=== PATIENT | male | born 1960 | race Caucasian/White ===

== ENCOUNTER 2017-08-24 10:49 | Inpatient (IN) | payer OTHER, SELFPAY ==
[2017-08-24 11:24] LABS: Band 8 % (5-11); Eosinophils 1 % (0-10); Hemoglobin 12.8 g/dL (14.0-18.0); Lymphocytes 28 % (21-51); MDiff Complete? YES; Mean Corpuscular HGB CONC 35.1 g/dL (32.0-36.0); Mean Corpuscular Hemoglobin 33.1 pg (27.0-31.0); Mean Corpuscular Volume 94.3 fl (80.0-94.0); Mean Platelet Volume 9.8 fL (7.4-10.4); Monocytes 9 % (0-10); Neutrophil 54 % (42-75); PLT Morphology Comment Appears Adequate; Platelet Count 144 thou/uL (130-400); RBC Distribution Width 12.6 % (11.5-14.5); Red Blood Cell (RBC) Count 3.87 mill/uL (4.70-6.10); White Blood Cell (WBC) Count 8.9 thou/uL (4.8-10.8)
[2017-08-24 11:30] LABS: CKMB 2.1 ng/mL (0-6.6); Troponin I Less than 0.010 ng/mL (< 0.028)
[2017-08-24 12:22] LABS: INR-International Normal Ratio 1.1; Prothrombin Time 14.3 SEC (12.0-14.7)
[2017-08-24 12:34] LABS: ALT (SGPT) 17 U/L (8-55); AST (SGOT) 17 U/L (5-34); Albumin 4.1 g/dL (3.5-5.0); Alkaline Phosphatase 57 U/L (40-150); Anion Gap 15 mmol/L (10-20); BUN (Urea Nitrogen) 23 mg/dL (8.4-25.7); Bilirubin, Total 0.3 mg/dL (0.2-1.2); Calc. Creatinine Clearance 0 mL/min (70-130); Carbon Dioxide 19 mmol/L (22-29); Chloride 105 mmol/L (98-107); Estimated GFR-MDRD 62; Globulin 2.9 g/dL (2.4-3.5); Glucose 272 mg/dL (70-105); Magnesium 1.6 mg/dL (1.6-2.6); Potassium 4.6 mmol/L (3.5-5.1); Sodium 134 mmol/L (136-145)
[2017-08-24] MEDS ORDERED: Ondansetron ODT 4 MG TAB SL PRN (13:55)
[2017-08-24] MEDS ORDERED: Acetaminophen 325 MG TAB PO PRN (13:55)
[2017-08-24] MEDS ORDERED: ISOVUE-370 76%-LOCM 1 ML ONE (13:57)
--- NOTE | 2017-08-24 13:58 | CT ---
BRAIN CT WITHOUT IV COTNRAST: HISTORY: A 56-year-old male with a history of left-sided weakness. FINDINGS: There is no focal mass or midline shift. No intra- or extraaxial hemorrhage. There is some minimal right maxillary sinus mucosal disease. The mastoids are clear. IMPRESSION: No acute intracranial process. No mass or bleed. Minimal right maxillary sinus mucosal disease. Findings were discussed with Dr. Grey at 11:02 a.m. CODE CR POS: [facility]
[2017-08-24 14:03] VITALS: BMI 34.1
[2017-08-24] MEDS: Ondansetron HCl/PF 4 MG/2 ML Vial IVP PRN ×2 (14:04→19:49)
--- NOTE | 2017-08-24 14:06 | PDOC.FPRHP ---
- History of Present Illness Chief Complaint: Left sided numbness and weakness History of Present Illness: This is a 56 yo male w/ pmh of tobacco abuse, recent CVA, HLD, HTN, DMII came in reporting have left side weakness, slurred speech, facial droop. Pt reports @ 930 this morning he says his left side went haywire and gave out on him. Says he couldn't use his left arm or leg. Said they went weak and had numbness. Also reported having slurred speech and left sided facial droop. Denies any SOB, chest pain. Denies any fever chills or recent illness. Pt reports vomiting 4x since getting to ER. Denies any diarrhea, constipation. Denies any dizziness, lightheadnes. Denies headaches. Denies any imbalance. . Pt denies any tingling. Denies any changes in vision or hearing. Pt sx's improving from what they were on initial presentation. Family present in room and reports speech still slurred but much btter from before Pt reports being [facility] from [facility] ago in which there he also was told he had a stroke. He said he had facial droop and speech then. He said he went and saw his senior quality manager in between that admission and this one and there they did us dopplers of his carotid which were negative. - Allergies/Adverse Reactions Allergies Allergy/AdvReac Type Severity Reaction Status Date / Time No Known Allergies Allergy Verified 08/24/17 14:05 - Home Medications Medication Instructions Recorded Confirmed Type Aspirin [Aspirin Chewable Tablet] 1 tab PO DAILY 08/24/17 08/24/17 History Atenolol [Tenormin] 1 tab PO BID 08/24/17 08/24/17 History Cholecalciferol (Vitamin D3) 1 tab PO DAILY 08/24/17 08/24/17 History [Vitamin D3] Clopidogrel Bisulfate [Clopidogrel] 1 tab PO DAILY 08/24/17 08/24/17 History Gemfibrozil [Lopid] 1 tab PO BID 08/24/17 08/24/17 History Lisinopril [Zestril] 1 tab PO DAILY 08/24/17 08/24/17 History Omeprazole [Omeprazole] 1 tab PO DAILY 08/24/17 08/24/17 History Pioglitazone HCl [Actos] 2 tab PO DAILY 08/24/17 08/24/17 History Simvastatin [Zocor] 1 tab PO DAILY 08/24/17 08/24/17 History Spironolact/Hydrochlorothiazid 0.5 tab PO DAILY 08/24/17 08/24/17 History [Aldactazide] glipiZIDE [Glucotrol XL] 2 tab PO BID 08/24/17 08/24/17 History metFORMIN HCl [Metformin HCl] 2 tab PO BID 08/24/17 08/24/17 History - History PMHx: HTN, DMII, HLD, Heart Stent placed in 2010 PSHx: R knee replacement. L wrist repair FHx:Dad- Diabetes, Mom- heart issues Social:1ppd smoker, Denies alcohol, Denies illicit drugs - Review of Systems General: denies: fever/chills, weight/appetite/sleep changes, night sweats, fatigue, other Eyes: denies: eye pain, vision changes, other ENT: denies: nasal congestion, rhinorrhea, other Respiratory: denies: cough, congestion, shortness of breath, exercise intolerance, other Cardiovascular: denies: chest pain, palpitation, edema, paroxysmal nocturnal dyspnea, orthopnea, other Gastrointestinal: reports: vomiting. denies: nausea, diarrhea, constipation, abdominal pain, GI bleeding, other Genitourinary: denies: incontinence, dysuria, polyuria, discharge, other Skin: denies: rashes, lesions, jaundice, itching, other Musculoskeletal: denies: pain, tenderness, stiffness, swelling, other Neurological: reports: numbness, weakness. denies: syncope, seizure, other Psychological: denies: anxiety, depression, other - Vital signs BP: [] HR: [] RR: [] Tmax: [] Pox: []% on [] Wt: [] - Physical Exam Constitutional: NAD, awake, alert and oriented, well developed HEENT: normocephalic and atraumatic, PERRLA, conjunctiva clear, no scleral icterus, grossly normal vision, grossly normal hearing Neck: supple, trachea midline, no JVD, no thyromegaly, no bruits Chest: no-tender to palpation, no lesions Heart: RRR, normal S1/S2, no murmurs/rubs/gallops, pulses present, no edema Lungs: CTAB, no respiratory distress, good air movement, no rales/rhonchi, no wheezing Abdomen: soft, non-tender, bowel sounds present, no masses/distention, no hernias Musculoskeletal: normal structure, normal tone -Musculoskeletal: Strenght 5/5 bilaterally in LE and UE -Neurological: Pt reports that maybe some numbness in the face after touching. Second time he said they felt about the same. Some nystagmus noted in his left eye during H test. Facial droop noted on L. side. Pt family reports speech still slurred but much improved from initial sx's Skin: no rash/lesions, good turgor, capillary refill <2 seconds, no jaundice Heme/Lymphatic: no unusual bruising or bleeding, no purpura Psychiatric: normal mood and affect, good judgment and insight, intact recent and remote memory FMR H&P: Results - Labs Result Diagrams: 08/24/17 11:00 08/24/17 12:06 Lab results: WBC 8.9 thou/uL (4.8-10.8) 08/24/17 11:00 Hgb 12.8 g/dL (14.0-18.0) L 08/24/17 11:00 Hct 36.5 % (42.0-52.0) L 08/24/17 11:00 MCV 94.3 fl (80.0-94.0) H 08/24/17 11:00 Plt Count 144 thou/uL (130-400) 08/24/17 11:00 Band Neuts % (Manual) 8 % (5-11) 08/24/17 11:00 Sodium 134 mmol/L (136-145) L 08/24/17 12:06 Potassium 4.6 mmol/L (3.5-5.1) 08/24/17 12:06 Chloride 105 mmol/L (98-107) 08/24/17 12:06 Carbon Dioxide 19 mmol/L (22-29) L 08/24/17 12:06 BUN 23 mg/dL (8.4-25.7) 08/24/17 12:06 Creatinine 1.21 mg/dL (0.6-1.3) 08/24/17 12:06 Glucose 272 mg/dL (70-105) H 08/24/17 12:06 Calcium 9.0 mg/dL (7.8-10.44) 08/24/17 12:06 Total Bilirubin 0.3 mg/dL (0.2-1.2) 08/24/17 12:06 AST 17 U/L (5-34) 08/24/17 12:06 ALT 17 U/L (8-55) 08/24/17 12:06 Alkaline Phosphatase 57 U/L (40-150) 08/24/17 12:06 CK-MB (CK-2) 2.1 ng/mL (0-6.6) 08/24/17 11:00 Serum Total Protein 7.0 g/dL (6.0-8.3) 08/24/17 12:06 Albumin 4.1 g/dL (3.5-5.0) 08/24/17 12:06 - Radiology Interpretation CT scan - head Status: image reviewed by me, report reviewed by me (NO acute pathology) Additional comment: CT Angio Head w/ neck perfusion: area of L. cerebellar perfusion abnormalities compatible w/ an area of L. cerebellar penumbra. Neck clear. Chest x-ray Status: image reviewed by me, report reviewed by me (negative) FMR H&P: A/P - Problem List (1) Cerebrovascular accident (CVA) Current Visit: Yes Status: Acute Code(s): I63.9 - CEREBRAL INFARCTION, UNSPECIFIED (2) HTN (hypertension) Current Visit: Yes Status: Acute Code(s): I10 - ESSENTIAL (PRIMARY) HYPERTENSION (3) HLD (hyperlipidemia) Current Visit: Yes Status: Acute Code(s): E78.5 - HYPERLIPIDEMIA, UNSPECIFIED (4) Diabetes mellitus Current Visit: Yes Status: Acute Code(s): E11.9 - TYPE 2 DIABETES MELLITUS WITHOUT COMPLICATIONS - Plan CVA of L. cerebellar region w/ L. sided defecits -Asa, plavix and switched to high dose statin from home statin. -Allow permissive HTN. -Neurology consulted- will follow recs -FLP am. Will check TSH -Will get ECHO. Will get MRI -Stroke team consulted. Q4hr neuro checks. -Bedside swallow study. -Speech, PT, OT consulted. Will await assessment. Speech due to dysarthria. -Will get [facility] from the [facility] to see about recent CVA and see what was done. DMII -Blood glucose elevated. Started home meds. Mild SSI. Accuchecks Achs. HTN -allow permissive HTN for next 24 hours, then restart home meds HLD -switched to high dose statin. Continue other home meds Tobacco abuse -counseled on cessation DVT Ppx -lovenos FMR H&P: Upper Level - Pertinent history 56yo CM with pmhx significant for HTN, HLD, DM2, tobacco abuse, and recent CVA 3 wks [employer] who presents with acute onset of left sided weakness, left facial sensory changes, and headache. Symptoms began approximately 1hr [employer] and have improved since they began. Took am meds (including asa & plavix). Pt stated he was treated 3 wks prior at [facility] after a CVA- unsure where in brain and unsure of any deficits. Upon arrival to ED, CT head was performed and found to be negative, therefore CTAngio was done showing a left cerebellar penumbra. ED physician called interventional neurosurgeon, Dr. Luke Flood, who recommended medical therapy as symptoms were resolving. - Pertinent findings CT Angio- left cerebellar penumbra Physical exam shows intact strength in b/l UE & LE. sensation mildly impaired left face with mild leftward gaze nystagmus. mildly dysarthric upon exam, but otherwise CN intact. Lab values generally wnl aside from glu 272. - Plan Date/Time: 08/24/17 1406 56yo CM with pmhx sig for prior CVA, HTN, HLD, DM2 & tobacco abuse who p/w-- 1) Acute left cerebellar ischemic CVA- penumbra noted on CT Angio, order MRI for tomorrow. no hemodynamically significant stenosis on carotid exam by CTA. order echocardiogram. EKG shows NSR. monitor on telemetry. request records from recent CVA at [facility]. consult neurology, PT/OT/ST and stroke team. allow for permissive HTN, holding home BP meds. bedside dysphagia screening- NPO with speech consult if fails; otherwise, HH & CC diet. cont ASA, plavix, high- intensity statin. 2) HTN- allow permissive HTN due to acute ischemic CVA, protect penumbra. labetolol/hydralazine prn SBP>220 or DBP > 110. 3) HLD- switch from moderate-intensity to high-intensity statin for improved plaque stabilization acutely. 4) DM2- cont home metformin & glipizide. add SSI and accuchecks ACHS. DM diet & education. d/c glipizide if develops hypoglycemia inpt. 5) Tobacco abuse- current 1ppd smoker. counseled on cessation. avoid nicotine TD in acute CVA period. I, [Olivia Dailey, ], have evaluated this patient and agree with findings/plan as outlined by event planning intern resident. Pertinent changes/additions are listed here. Attending Addendum - Attending Addendum Date/Time: 08/24/171931 I personally evaluated the patient and discussed the management with Dr. Garza I agree with the History, Examination, Assessment and Plan documented above with any addition or exceptions noted below. 56 yo male with HX CAD, AODM, HTN , and active smoker with recent w/u CVA at outside facility and dismissed on Clopidogrel 75 mg. Patient with left sided symptoms today slurred speech and weakness LUE and LLE at time of exam no deficits other than reported left facial parasthesia. Consider further evaluation may benefit from repeat MRI, APOLINAR as reported transthoracic echocardiogram and vascular studies previously completed
[2017-08-24] MEDS ORDERED: hydrALAZINE 20 MG/ML VIAL SLOW IVP PRN (14:20)
[2017-08-24] MEDS ORDERED: Labetalol HCl 100 MG/20 ML VIAL SLOW IVP PRN (14:20)
[2017-08-24] MEDS ORDERED: Dextrose 5% in Water 1,000 ML IV PRN (14:22)
[2017-08-24] MEDS ORDERED: Dextrose 50% Abboject 50 ML SYRINGE SLOW IVP PRN (14:22)
[2017-08-24 14:26] LABS: Troponin I Less than 0.010 ng/mL (< 0.028)
[2017-08-24] MEDS ORDERED: Enoxaparin Sodium 40 MG/0.4 ML SYRINGE SC SCH (14:30)
--- NOTE | 2017-08-24 14:30 | RAD ---
AP VIEW CHEST: HISTORY: Stroke, weakness. FINDINGS: AP view chest is obtained. There is mild cardiomegaly seen. No evidence of effusions, pneumonia, or pneumothorax seen. IMPRESSION: Unremarkable AP view chest. POS: [facility]
--- NOTE | 2017-08-24 14:30 | CT ---
CTA CAROTID WELL INTRACRANIAL CTA AND BRAIN PERFUSION SCAN: Images demonstrate the aortic arch to be unremarkable. The right brachiocephalic artery as well as t he right and left common carotid arteries are patent. The left vertebral artery appears to be occlud ed or significantly stenotic at its origin. The patient has a more normal-size right vertebral arter y. The JENNY, MCA, and C[employer]IED [employer] vessels are patent. Brain perfusion evaluation demonstrates increased mean transit time in the left cerebellar hemisphere . There is associated decreased left cerebellar blood flow as well as increased blood volume. This with the increased mean transit time, is compatible with an area of penumbra involving the left cere bellum. IMPRESSION: Area of left cerebellar perfusion abnormalities compatible with an area of left cerebellar penumbra. Findings discussed with Dr. Grey at 11:42 a.m. on 08/24/17. CODE CR POS: [facility]
[2017-08-24 14:51] LABS: INR-International Normal Ratio 1.2; PTT 29.2 SEC (22.9-36.1); Prothrombin Time 14.9 SEC (12.0-14.7)
[2017-08-24] MEDS: Gemfibrozil 600 MG TAB PO SCH (15:15)
[2017-08-24] MEDS: HumaLOG 300 UNITS/3 ML VIAL SC PRN ×3 (15:16→21:23)
[2017-08-24] MEDS ORDERED: FLU VACC QS2017-18 36 mo. & older 0.5 ML SYRINGE IM ONE (17:00)
--- NOTE | 2017-08-24 19:21 | CON ---
DATE OF CONSULTATION: 08/24/2017 CHIEF COMPLAINT: Weakness and incoordination. HISTORY OF PRESENT ILLNESS: The patient is a 56-year-old man who reports he had a stroke about 2 wee ks ago and patient has had incoordination from the prior stroke, which affected mostly his left side and this morning, he developed sudden onset of lack of coordination, and difficulty with walking and he had to come back to the hospital with possible stroke and at this time, he tried to walk, but he s aid he cannot walk well and he feels his left side is not coordinating well. PAST MEDICAL HISTORY: The patient reports he has had sleep apnea and poorly controlled diabetes. He has hypertension. He also has a physician who is looking at his carotid arteries. He also has high cholesterol. PAST SURGICAL HISTORY: He has had right knee surgery in the past and also left wrist surgery in 2013 and he reports he takes aspirin on a regular basis. CURRENT MEDICATIONS: As reviewed, he is on Tylenol, aspirin 325 mg, Lipitor 80 mg, cholecalciferol 5 000 units per day, Plavix 75 mg per day and he is on Lopid, glipizide, glucagon, hydralazine, insulin on a sliding scale, Normodyne, meclizine, metformin and Zofran p.r.n. SOCIAL HISTORY: He lives with his family. He is under a great deal of stress. He had to move his p arents locally closer to him and it has been a great stress. FAMILY HISTORY: Positive for mostly heart problems. No stroke in the family. LABORATORY DATA: White count 8.9, hemoglobin 12.8, hematocrit 36.5 and platelets 144. Chemistry: S odium 134, potassium 4.6, chloride 105, bicarbonate 19, BUN 23, creatinine 1.21 and glucose 272. The patient reports home glucose testing recently has been in the 400s and his PT 14.9, INR 1.2 and PTT 29.2. IMAGING DATA: CT angiogram shows area of left cerebellar perfusion abnormalities compatible with the area of left cerebellar penumbra, likely left cerebellar stroke; however, the patient reported he ju st had a stroke in the left cerebellum about [address] scan shows no acute intracranial process. PHYSICAL EXAMINATION: GENERAL APPEARANCE: A well-built, slightly overweight gentleman, appears comfortable in bed. VITAL SIGNS: Blood pressure 138/86, temperature 98.3, pulse 63 and respiratory rate 18. CHEST: Clear vesicular breathing. CARDIOVASCULAR: S1 and S2 heard. No murmurs. Carotids are clear. ABDOMEN: Soft and nontender. No organomegaly noted. MOTOR: Bulk normal. Tone normal. Strength 5/5 in upper and lower extremities bilaterally. SENSORY: Normal to touch, pinprick, proprioception, vibration, and temperature bilaterally and his g ait not testable. CEREBELLAR: He had very mild incoordination in the left upper extremity. IMPRESSION: The patient is a 56-year-old man with vascular risk factors, primarily unstable diabetes and recent history of stroke about 2 weeks ago on the left side and he recovered fully and went home , has been on aspirin. At this time, he reports he was unable to walk and he fell and got himself ba ck in the chair this morning and he still feels unstable and unsteady when walking. Clinical diagnos is is most consistent with possible exacerbation of his acute stroke of his prior stroke and CT angio gram shows occlusion of the left vertebral artery, normal right vertebral artery and normal patency o f JENNY, MCA and JENNY and area of left cerebellar perfusion abnormality. Clinical diagnosis is most con sistent with the stroke. RECOMMENDATIONS: 1. I would like to see an MRI to make sure that there is an acute ischemic event at this time. 2. His diabetes is rather unstable and we need to work on risk factor modification. I also think re peat echocardiogram will be helpful. I will request Dr. Paul to review this case tomorrow. Thank you for the consultation request.
[2017-08-24] MEDS ORDERED: Simvastatin 40 MG TAB PO SCH (21:00)
[2017-08-24] MEDS: Atorvastatin Calcium 40 MG TAB PO SCH (21:22)
[2017-08-24] MEDS: metFORMIN 500 MG TAB PO SCH (21:23)
[2017-08-24] MEDS: Meclizine HCl 25 MG TAB PO SCH (21:23)
[2017-08-25 05:47] LABS: #Eosinphils 0.1 thou/uL (0.0-0.7); #Lymphocytes 1.9 thou/uL (1.20-3.40); #Monocytes 0.7 thou/uL (0.11-0.59); #Neutrophils 5.1 thou/uL (1.40-6.50); %Basophils 0.5 % (0.0-1.0); %Eosinophils 1.2 % (0.0-10.0); %Lymphocytes 24.5 % (21.0-51.0); %Monocytes 8.3 % (0.0-10.0); %Neutrophils 65.5 % (42.0-75.0); Hemoglobin 12.6 g/dL (14.0-18.0); Mean Corpuscular Volume 97.2 fl (80.0-94.0); Platelet Count 183 thou/uL (130-400); RBC Distribution Width 12.4 % (11.5-14.5); Red Blood Cell (RBC) Count 3.61 mill/uL (4.70-6.10); White Blood Cell (WBC) Count 7.8 thou/uL (4.8-10.8)
[2017-08-25 06:07] LABS: Anion Gap 14 mmol/L (10-20); BUN (Urea Nitrogen) 14 mg/dL (8.4-25.7); Calc. Creatinine Clearance 123 mL/min (70-130); Calcium 9.5 mg/dL (7.8-10.44); Carbon Dioxide 24 mmol/L (22-29); Cardiac Risk 6.4 (Less than 4.5); Chloride 105 mmol/L (98-107); Cholesterol 160 mg/dl (< 200 Desired); Estimated GFR-MDRD 85; Glucose 123 mg/dL (70-105); HDL Cholesterol 25 mg/dL (>60 Neg Risk); LDL Cholesterol, Calculated 85 mg/dL; Potassium 3.5 mmol/L (3.5-5.1); Sodium 139 mmol/L (136-145); Triglycerides 251 mg/dL (Less than 150)
[2017-08-25] MEDS: Meclizine HCl 25 MG TAB PO SCH ×3 (06:09→22:19)
[2017-08-25] MEDS: Gemfibrozil 600 MG TAB PO SCH ×2 (09:11→18:24)
[2017-08-25] MEDS: Pioglitazone HCl 15 MG TAB PO SCH (09:11)
[2017-08-25] MEDS: Aspirin 325 mg Enteric Coated Tablet PO SCH (09:12)
[2017-08-25] MEDS: Clopidogrel Bisulfate 75 MG TAB PO SCH (09:12)
[2017-08-25] MEDS: Enoxaparin Sodium 40 MG/0.4 ML SYRINGE SC SCH (09:12)
[2017-08-25] MEDS: metFORMIN 500 MG TAB PO SCH ×2 (09:12→22:18)
--- NOTE | 2017-08-25 10:30 | PDOC.FM ---
- Subjective Subjective: Patient doing well this morning. During rounds pt complains of right sided facial numbness that began during physical therapy. - Objective MAR Reviewed: Yes Vital Signs & Weight: Vital Signs (12 hours) Temp Pulse Resp BP Pulse Ox 08/25/17 08:00 97.4 F L 65 16 120/83 93 L 08/25/17 04:24 97.7 F 68 18 127/80 95 08/25/17 00:12 97.6 F 69 20 126/79 93 L Weight Weight 95.878 kg I&O: 08/24/17 08/25/17 08/26/17 06:59 06:59 06:59 Intake Total 900 Balance 900 Result Diagrams: 08/25/17 04:54 08/25/17 04:54 <Xenia Casey - Last Filed: 08/25/17 10:28> - Objective Vital Signs & Weight: Vital Signs (12 hours) Temp Pulse Resp BP Pulse Ox 08/25/17 08:00 97.4 F L 65 16 120/83 93 L 08/25/17 04:24 97.7 F 68 18 127/80 95 08/25/17 00:12 97.6 F 69 20 126/79 93 L Weight Weight 95.878 kg I&O: 08/24/17 08/25/17 08/26/17 06:59 06:59 06:59 Intake Total 900 Balance 900 Result Diagrams: 08/25/17 04:54 08/25/17 04:54 <Cassandra Gerber - Last Filed: 08/25/17 10:54> Phys Exam - Physical Examination Constitutional: NAD Respiratory: clear to auscultation bilateral Cardiovascular: RRR Gastrointestinal: soft, non-tender Musculoskeletal: no edema Neurological: moves all 4 limbs slight dysdiadokinesia on LUE; 5/5 strength throughout Psychiatric: normal affect, A&O x 3 Skin: no rash <Xenia Casey - Last Filed: 08/25/17 10:28> Dx/Plan (1) Cerebrovascular accident (CVA) Code(s): I63.9 - CEREBRAL INFARCTION, UNSPECIFIED Status: Acute Plan: Continue ASA and plavix. BP meds held to allow permissive HTN. MRI and Echo pending. Neuro recs appreciated. (2) Diabetes mellitus Code(s): E11.9 - TYPE 2 DIABETES MELLITUS WITHOUT COMPLICATIONS Status: Acute Plan: Continue current PO regimen. Pt states that he takes 70/30 30 units once daily (although instructed to take it BID by manager forensic). Pt required 12 units of correctional insulin yesterday. Will change to 15 units BID. Continue to monitor AC/HS blood sugars. Mild SSI. (3) HLD (hyperlipidemia) Code(s): E78.5 - HYPERLIPIDEMIA, UNSPECIFIED Status: Acute Plan: Continue Atorvastatin 80 mg (4) HTN (hypertension) Code(s): I10 - ESSENTIAL (PRIMARY) HYPERTENSION Status: Acute Plan: BP meds held to allow for permissive HTN. Continue to monitor. <Xenia Casey - Last Filed: 08/25/17 10:28> Attending Addendum - Attending Addendum Date/Time: 08/25/17 1058 I personally evaluated the patient and discussed the management with Dr. Casey. I agree with the History, Examination, Assessment and Plan documented above with any addition or exceptions noted below. The patient was experiencing right sided facial numbness this morning. BP was stable. He is going for MRI. On aspirin and plavix. Adjusting insulin. <Casasndra Gerber - Last Filed: 08/25/17 10:54>
[2017-08-25] MEDS ORDERED: Ondansetron HCl/PF 4 MG/2 ML Vial IVP PRN (10:32)
[2017-08-25] MEDS: HumaLOG 300 UNITS/3 ML VIAL SC PRN ×2 (11:34→18:24)
--- NOTE | 2017-08-25 12:23 | MRI ---
BRAIN MRI WITHOUT CONTRAST: HISTORY: Left-sided weakness. COMPARISON: None. TECHNIQUE: A brain MRI is performed without intravenous Gadolinium administration. Multisequential, multiplanar imaging is performed. FINDINGS: No hemorrhage on the axial gradient echo sequence. There is T2 and FLAIR hyperintensity involving the left cerebellar hemisphere, with associated restri cted diffusion. Abnormal signal intensity is compatible with the area of abnormality noted on recent perfusion study. Acute infarct is favored. No parenchymal mass, mass effect, or midline shift. Brain volume is age appropriate. Cortical olson white matter differentiation is preserved. The ventricles and sulci are patent and symmetric. Mild bilateral mucosal thickening and ethmoidal mucosal thickening. The calvarium has a normal T1 marrow signal intensity. Midline brain parenchymal structures are unre markable. IMPRESSION: Acute infarct involving the left cerebellar hemisphere. POS: [facility]
--- NOTE | 2017-08-25 20:03 | PRG ---
DATE OF SERVICE: 08/25/2017 SUBJECTIVE: Mr. Holland is a pleasant 56-year-old male with recent left cerebellar infarct, presented with worsening left sided coordination. He had an episode today, this morning where he be came numb on his right side of the body from face down to toes. He denies any headache, chest pain, palpitation, dysarthria, or dysphagia. PHYSICAL EXAMINATION: VITAL SIGNS: Blood pressure 143/99, pulse of 87, temperature of 97.6, respirations of 16, an O2 sat 95% on room air. GENERAL: Well-developed, well-nourished male in no apparent distress. RESPIRATORY: Clear to auscultation bilaterally. CARDIOVASCULAR: Regular rate and rhythm. NEUROLOGIC: Mental status: The patient is awake, alert, oriented x3. Speech and language: Fluent speech. Cranial nerves: Pupils are 3 mm and reactive. Visual redmond are intact. External muscles are intact. No nystagmus noted. Face is symmetric. Tongue and uvula midline. Motor exam showed no rmal tone and bulk with a 5/5 strength in both upper extremities. Sensory: Sensation appears intact and symmetric. Deep tendon reflexes a 2+ reflexes in both upper and lower extremities. Babinski: Plantar responses flexion bilaterally. Coordination: There is dysmetria noted on [id number] on the left upper extremity. He is unable to perform [id number] test on the left side. Gait and Romberg are not assessed. IMAGING STUDIES: MRI brain without contrast was reviewed, which showed acute to subacute ischemic in farct involving the left cerebellar hemisphere. ASSESSMENT: This is likely present with his previous stroke. In my opinion, this is likely subacute in nature. In any case, the treatment plan at this time would not change. I will recommend for him to continue on Plavix for secondary stroke prevention. He will need physical therapy as either inpa tient or outpatient depending on the recommendations of the physical therapy. I have discussed with him in detail that he needs to control his diet. He needs to exercise daily and is to control his ri sk factors, which includes high blood pressure, diabetes, and cholesterol, and is to continue taking Plavix for secondary stroke prevention. There is no further neurological workup needed from my stand point. I will sign off. Please call us if there are any further questions or concern.
[2017-08-25] MEDS ORDERED: Insulin NPH/Reg Insulin Hm 300 UNITS/3 ML VIAL SC SCH (21:00)
[2017-08-25] MEDS: Atorvastatin Calcium 40 MG TAB PO SCH (22:18)
[2017-08-25] MEDS: Insulin NPH/Reg Insulin Hm 300 UNITS/3 ML VIAL SC SCH (23:04)
[2017-08-26] MEDS: Meclizine HCl 25 MG TAB PO SCH ×3 (06:18→21:11)
--- NOTE | 2017-08-26 06:42 | PDOC.FM ---
- Subjective Subjective: Patient is doing well this morning. He states that his right sided facial numbness has improved compared to yesterday. He denies focal weakness and slurred speech. No adverse events overnight. - Objective MAR Reviewed: Yes Vital Signs & Weight: Vital Signs (12 hours) Temp Pulse Resp BP Pulse Ox 08/26/17 03:53 97.7 F 70 14 147/77 H 92 L 08/25/17 23:46 98.0 F 82 16 165/95 H 94 L 08/25/17 20:00 97.4 F L 84 16 167/99 H 95 Weight Weight 95.878 kg I&O: 08/24/17 08/25/17 08/26/17 06:59 06:59 06:59 Intake Total 900 Balance 900 Result Diagrams: 08/25/17 04:54 08/25/17 04:54 <Xenia Casey - Last Filed: 08/26/17 08:53> - Objective Vital Signs & Weight: Vital Signs (12 hours) Temp Pulse Resp BP BP Pulse Ox 08/26/17 09:35 76 191/108 H 08/26/17 09:34 191/108 H 08/26/17 08:00 97.4 F L 76 20 191/108 H 95 08/26/17 07:50 97.4 F L 76 20 95 08/26/17 03:53 97.7 F 70 14 147/77 H 92 L 08/25/17 23:46 98.0 F 82 16 165/95 H 94 L Weight Weight 95.878 kg I&O: 08/25/17 08/26/17 08/27/17 06:59 06:59 06:59 Intake Total 900 480 300 Balance 900 480 300 Result Diagrams: 08/25/17 04:54 08/25/17 04:54 <Cassandra Gerber - Last Filed: 08/26/17 10:54> Phys Exam - Physical Examination Constitutional: NAD HEENT: PERRLA Respiratory: clear to auscultation bilateral Cardiovascular: RRR Gastrointestinal: soft, non-tender, no distention Musculoskeletal: no edema Neurological: moves all 4 limbs Psychiatric: A&O x 3 <Xenia Casey - Last Filed: 08/26/17 08:53> Dx/Plan (1) Cerebrovascular accident (CVA) Code(s): I63.9 - CEREBRAL INFARCTION, UNSPECIFIED Status: Acute Plan: Continue ASA and plavix. Restart home antihypertensives. Risk factor modification with blood sugar control, BP control. Echo normal. Neurology recommendations reviewed. Rehab screen placed. (2) Diabetes mellitus Code(s): E11.9 - TYPE 2 DIABETES MELLITUS WITHOUT COMPLICATIONS Status: Acute Plan: Postprandial blood sugars yesterday poorly controlled, but intermediate acting insulin started last night. Continue to monitor postprandial blood sugars throughout today. Continue PO meds. (3) HLD (hyperlipidemia) Code(s): E78.5 - HYPERLIPIDEMIA, UNSPECIFIED Status: Acute Plan: Continue Atorvastatin 80 mg (4) HTN (hypertension) Code(s): I10 - ESSENTIAL (PRIMARY) HYPERTENSION Status: Acute Plan: Will restart home antihypertensives. <Xenia Casey - Last Filed: 08/26/17 08:53> Attending Addendum - Attending Addendum Date/Time: 08/26/17 1053 I personally evaluated the patient and discussed the management with Dr. Casey. I agree with the History, Examination, Assessment and Plan documented above with any addition or exceptions noted below. The patient's MRI was reviewed. The patient's bp is elevated. REstarting home meds. Restarted insulin last night and blood sugars are improving. Will see if pt qualifies for a kisha bed at in rehab. <Cassandra Gerber - Last Filed: 08/26/17 10:54>
[2017-08-26] MEDS ORDERED: Spironolactone/Hctz 25 MG/25 MG TABLET PO SCH (09:00)
[2017-08-26] MEDS: Aspirin 325 mg Enteric Coated Tablet PO SCH (09:34)
[2017-08-26] MEDS: Gemfibrozil 600 MG TAB PO SCH ×2 (09:34→15:12)
[2017-08-26] MEDS: Clopidogrel Bisulfate 75 MG TAB PO SCH (09:34)
[2017-08-26] MEDS: Lisinopril 10 MG TAB PO SCH (09:34)
[2017-08-26] MEDS: metFORMIN 500 MG TAB PO SCH ×2 (09:34→21:11)
[2017-08-26] MEDS: Atenolol 25 MG TAB PO SCH ×2 (09:35→21:11)
[2017-08-26] MEDS: Pioglitazone HCl 15 MG TAB PO SCH (09:38)
[2017-08-26] MEDS: Enoxaparin Sodium 40 MG/0.4 ML SYRINGE SC SCH (09:38)
[2017-08-26] MEDS: Insulin NPH/Reg Insulin Hm 300 UNITS/3 ML VIAL SC SCH ×2 (09:44→21:12)
[2017-08-26] MEDS ORDERED: Hydrochlorothiazide 25 MG TAB PO SCH (10:15)
[2017-08-26] MEDS ORDERED: Spironolactone 25 MG TAB PO SCH (10:15)
[2017-08-26] MEDS: HumaLOG 300 UNITS/3 ML VIAL SC PRN ×2 (12:06→16:59)
[2017-08-26] MEDS: Atorvastatin Calcium 40 MG TAB PO SCH (21:11)
[2017-08-27] MEDS: Meclizine HCl 25 MG TAB PO SCH ×2 (06:12→14:10)
--- NOTE | 2017-08-27 08:04 | PDOC.FM ---
- Subjective Subjective: Patient complains of difficulty writing with his left hand. He complains of some residual left-sided weakness. - Objective MAR Reviewed: Yes Vital Signs & Weight: Vital Signs (12 hours) Temp Pulse Resp BP Pulse Ox 08/27/17 04:00 97.5 F L 60 16 110/66 92 L 08/26/17 22:55 98.0 F 73 20 136/88 96 08/26/17 21:11 85 Weight Weight 95.878 kg I&O: 08/26/17 08/27/17 08/28/17 06:59 06:59 06:59 Intake Total 480 1620 Balance 480 1620 Result Diagrams: 08/25/17 04:54 08/25/17 04:54 <Xenia Casey - Last Filed: 08/27/17 09:02> - Objective Vital Signs & Weight: Vital Signs (12 hours) Temp Pulse Resp BP BP Pulse Ox 08/27/17 16:00 98.2 F 80 16 130/90 93 L 08/27/17 12:00 98.5 F 75 16 135/96 H 96 08/27/17 08:49 62 191/108 H 08/27/17 08:00 97.6 F 62 16 151/93 H 96 Weight Weight 95.878 kg I&O: 08/26/17 08/27/17 08/28/17 06:59 06:59 06:59 Intake Total 480 1620 Balance 480 1620 Result Diagrams: 08/25/17 04:54 08/25/17 04:54 <Cassandra Gerber - Last Filed: 08/27/17 17:52> Phys Exam - Physical Examination Constitutional: NAD Respiratory: clear to auscultation bilateral Cardiovascular: RRR Gastrointestinal: soft, non-tender Musculoskeletal: no edema 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 Psychiatric: normal affect, A&O x 3 <Xenia Casey - Last Filed: 08/27/17 09:02> Dx/Plan (1) Cerebrovascular accident (CVA) Code(s): I63.9 - CEREBRAL INFARCTION, UNSPECIFIED Status: Acute Plan: Continue ASA and plavix. Restart home antihypertensives. Risk factor modification with blood sugar control, BP control. Echo normal. Rehab screen placed and pt's family is filling out application for kisha bed for inpatient rehab. (2) Diabetes mellitus Code(s): E11.9 - TYPE 2 DIABETES MELLITUS WITHOUT COMPLICATIONS Status: Acute Plan: Will increase morning dose of intermediate acting insulin. Continue PO meds and AC/HS accuchecks. (3) HLD (hyperlipidemia) Code(s): E78.5 - HYPERLIPIDEMIA, UNSPECIFIED Status: Acute Plan: Continue Atorvastatin 80 mg (4) HTN (hypertension) Code(s): I10 - ESSENTIAL (PRIMARY) HYPERTENSION Status: Acute Plan: BP stable. Continue home antihypertensives. <Xenia Casey - Last Filed: 08/27/17 09:02> Attending Addendum - Attending Addendum Date/Time: 08/27/17 3623 I personally evaluated the patient and discussed the management with Dr. Casey. I agree with the History, Examination, Assessment and Plan documented above with any addition or exceptions noted below. The patient is unsure about filling out kisha paperwork for inpt rehab. The patient may discharge if no bed is available. <Cassandra Gerber - Last Filed: 08/27/17 17:52>
[2017-08-27] MEDS: metFORMIN 500 MG TAB PO SCH (08:47)
[2017-08-27] MEDS: Enoxaparin Sodium 40 MG/0.4 ML SYRINGE SC SCH (08:47)
[2017-08-27] MEDS: Gemfibrozil 600 MG TAB PO SCH (08:48)
[2017-08-27] MEDS: Pioglitazone HCl 15 MG TAB PO SCH (08:48)
[2017-08-27] MEDS: Aspirin 325 mg Enteric Coated Tablet PO SCH (08:48)
[2017-08-27] MEDS: Lisinopril 10 MG TAB PO SCH (08:49)
[2017-08-27] MEDS: Clopidogrel Bisulfate 75 MG TAB PO SCH (08:49)
[2017-08-27] MEDS: Atenolol 25 MG TAB PO SCH (08:49)
[2017-08-27] MEDS ORDERED: Hydrochlorothiazide 25 MG TAB PO SCH (09:00)
[2017-08-27] MEDS ORDERED: Insulin NPH/Reg Insulin Hm 300 UNITS/3 ML VIAL SC SCH ×2 (09:00→21:00)
[2017-08-27] MEDS ORDERED: Spironolactone 25 MG TAB PO SCH (09:00)
[2017-08-27] MEDS: HumaLOG 300 UNITS/3 ML VIAL SC PRN (12:07)
[2017-08-27 16:24] VITALS: BP 130/90; TEMP 98.2
--- NOTE | 2017-08-28 14:03 | DIS-2 ---
DATE OF ADMISSION: 08/24/2017 DATE OF DISCHARGE: 08/27/2017 ADMITTING ATTENDING: Abdoul Smyth M.D. DISCHARGE ATTENDING: Cassandra Gerber M.D. RESIDENT: Xenia Casey M.D., PGY-2. CONSULTS: Amaya Paul M.D. PROCEDURES: 1. Noncontrast CT of the brain which showed no acute intracranial process. No mass or bleed. Minim al right maxillary sinus mucosal disease. 2. CT angiography of the head and neck which showed an area of left cerebellar perfusion abnormaliti es compatible with an area of left cerebellar penumbra. 3. Echocardiogram, which showed left ventricular ejection fraction of 55-60%, possible diastolic dys function, mild mitral regurgitation, mild tricuspid regurgitation. 4. Brain MRI without contrast which showed acute infarct involving the left cerebellar hemisphere. PRIMARY DIAGNOSIS: Subacute cerebrovascular accident. SECONDARY DIAGNOSES: 1. Diabetes mellitus type 2. 2. Hyperlipidemia. 3. Hypertension. DISCHARGE MEDICATIONS: 1. Atorvastatin 80 mg p.o. at bedtime. 2. Glipizide 20 mg p.o. b.i.d. 3. Hydrochlorothiazide 12.5 mg p.o. daily. 4. Meclizine 25 mg p.o. q.8 hours. 5. Metformin 1000 mg p.o. b.i.d. 6. Spironolactone 12.5 mg p.o. daily. 7. Atenolol 25 mg p.o. b.i.d. 8. Plavix 75 mg p.o. daily. 9. Lisinopril 10 mg p.o. daily. 10. Actos 30 mg p.o. daily. 11. Vitamin D3 5000 units p.o. daily. 12. Gemfibrozil 600 mg p.o. b.i.d. 13. Omeprazole 40 mg p.o. daily. 14. NovoLog 70/30, 26 units q.a.m. and 20 units at bedtime. DISCONTINUED MEDICATIONS: 1. Aldactazide 12.5 mg/12.5 mg p.o. daily. 2. Simvastatin 40 mg p.o. daily. HOSPITAL COURSE: The patient is a 56-year-old male with past history of hypertension, hype rlipidemia, diabetes, and a recent CVA, who presented with left-sided weakness, slurred speech and fa cial droop. It was thought that the patient was potentially having a new CVA or extension of his derek or CVA. Neuro imaging was ordered which showed the above findings. Neurology was consulted who estuardo mmended an MRI. MRI did not show a new acute infarct. It was felt that patient's symptoms were rela christen to his prior CVA. On admission, Plavix and aspirin were continued. On admission, Stroke Team wa s consulted. Simvastatin was changed to high dose statin therapy. Risk factor modification was init iated. Regarding the patient's diabetes, modifications were made to the patient's home insulin regim en to improve his blood sugars and further titration will be needed outpatient. His oral and IV medi cations were restarted. Regarding the patient's hypertension, initially his blood pressure medicatio ns were held to allow for permissive hypertension; however, restarted then were after 24 hours. Rega rding the patient's hyperlipidemia his medications were changed were changed to moderate intensity st atin as stated above. Physical therapy was consulted on admission and their discharge recommendation s were for rehab with occupational and physical therapy and the patient would need a rolling walker. The patient was uninsured at the time of admission and [employer] paperwork for inpatient rehabilitatio n was started during the hospitalization. Case management assisted with referral to Home Health and with a rolling walker. The patient was discharged in stable condition. DISPOSITION: Stable. DISCHARGE INSTRUCTIONS: 1. Location: Home. 2. Diet: Heart healthy, ADA. 3. Activity: Ad jed. 4. Followup: The patient is to follow up with his primary care provider, Dr. Barnes in 3-7 days .
--- NOTE | 2017-08-29 11:57 | EKG ---
Test Reason : Blood Pressure : / mmHG Vent. Rate : 070 BPM Atrial Rate : 070 BPM P-R Int : 160 ms QRS Dur : 106 ms QT Int : 390 ms P-R-T Axes : 057 -28 010 degrees QTc Int : 421 ms Sinus rhythm with Fusion complexes Otherwise normal ECG Confirmed by PHAN Marques, DAMIAN ([id number]), copy editor ARLET ASCENCIO ([id number]) on 08/29/2017 11:56:13 AM Referred By: Confirmed By:DAMIAN CHISHOLM M.D.
== END 2017-08-27 16:36 | disposition home or self-care (01) | DRG 65 ==
LOC: ERS 10:49 → 2SE 12:47
PROVIDERS: ADMIT Family Medicine; ATTEND Family Medicine
DX: I63.212 Cerebral infarction due to unspecified occlusion or stenosis of left vertebral artery (principal); G81.91 Hemiplegia, unspecified affecting right dominant side; I10 Essential (primary) hypertension; E11.9 Type 2 diabetes mellitus without complications; E78.00 Pure hypercholesterolemia, unspecified; G47.33 Obstructive sleep apnea (adult) (pediatric); Z79.82 Long term (current) use of aspirin; Z79.01 Long term (current) use of anticoagulants; Z79.4 Long term (current) use of insulin; Z96.651 Presence of right artificial knee joint; Z95.5 Presence of coronary angioplasty implant and graft; F17.210 Nicotine dependence, cigarettes, uncomplicated; I25.10 Atherosclerotic heart disease of native coronary artery without angina pectoris
CPT/HCPCS: 0042T; 36415; 36416; 70450; 70496; 70498; 70551; 71045; 80048; 80053; 80061; 82553; 83036; 83735; 84443; 84484; 85025; 85610; 85730; 90471; 90682; 93005; 93306; A4216; G0008; G8978-GP-CL; G8979-GP-CJ; G8987-GO-CJ; G8988-GO-CI; G8999-GN-CI; G9186-GN-CH; J1650; J2405; Q2036

== ENCOUNTER 2017-09-04 16:54 | Inpatient (IN) | payer SELFPAY ==
[~2017-09-04 16:54] MED LIST: ISOVUE-370 76%-LOCM 1 ML ONE
[2017-09-04 17:17] LABS: Hemoglobin 13.2 g/dL (14.0-18.0); Mean Corpuscular HGB CONC 35.5 g/dL (32.0-36.0); Mean Corpuscular Hemoglobin 33.6 pg (27.0-31.0); Mean Corpuscular Volume 94.8 fl (80.0-94.0); Mean Platelet Volume 9.4 fL (7.4-10.4); Platelet Count 174 thou/uL (130-400); RBC Distribution Width 12.8 % (11.5-14.5); Red Blood Cell (RBC) Count 3.92 mill/uL (4.70-6.10); White Blood Cell (WBC) Count 6.6 thou/uL (4.8-10.8)
[2017-09-04 17:25] LABS: INR-International Normal Ratio 1.1; PTT 30.7 SEC (22.9-36.1); Prothrombin Time 14.8 SEC (12.0-14.7)
[2017-09-04 17:29] LABS: ALT (SGPT) 25 U/L (8-55); AST (SGOT) 24 U/L (5-34); Albumin 4.4 g/dL (3.5-5.0); Alkaline Phosphatase 78 U/L (40-150); Anion Gap 17 mmol/L (10-20); BUN (Urea Nitrogen) 30 mg/dL (8.4-25.7); Bilirubin, Total 0.4 mg/dL (0.2-1.2); Calc. Creatinine Clearance 0 mL/min (70-130); Calcium 9.3 mg/dL (7.8-10.44); Carbon Dioxide 20 mmol/L (22-29); Chloride 103 mmol/L (98-107); Estimated GFR-MDRD 53; Globulin 2.9 g/dL (2.4-3.5); Glucose 145 mg/dL (70-105); Potassium 4.5 mmol/L (3.5-5.1); Protein, Total 7.3 g/dL (6.0-8.3); Sodium 135 mmol/L (136-145)
[2017-09-04 17:32] LABS: CKMB 1.2 ng/mL (0-6.6); Troponin I Less than 0.010 ng/mL (< 0.028)
[2017-09-04 17:45] LABS: Band 19 % (5-11); Eosinophils 2 % (0-10); Lymphocytes 36 % (21-51); MDiff Complete? YES; Monocytes 11 % (0-10); Neutrophil 29 % (42-75); PLT Morphology Comment Appears Adequate; Reactive Lymphocytes 3 % (0-10)
--- NOTE | 2017-09-04 19:08 | CT ---
CT OF THE BRAIN WITHOUT CONTRAST: 09/04/17 COMPARISON: 08/24/17, MRI of brain 08/25/17. HISTORY: Stroke-like symptoms. Difficulty walking and left nostril burning. Pain behind the left eye. Difficul ty speaking and swallowing. TECHNIQUE: Multiple contiguous axial images were obtained in a CT of the brain without contrast. FINDINGS: There is interval development of hypodensity in the left cerebellar hemisphere on CT. This correspond s with infarct seen on MRI on the prior MRI in the left cerebellar hemisphere. No other confluent hyp odensity is seen. There is no evidence of hydrocephalus, intracranial hemorrhage, or extra-axial flu id collection. The calvarium and overlying soft tissues are unremarkable. The visualized paranasal sinuses and masto id air cells are well aerated. IMPRESSION: Evolving left cerebellar infarction. Dr. Lopez notified of the findings at 5:12 p.m. on 09/04/17. POS: [facility]
[2017-09-04] MEDS ORDERED: Aspirin 300 MG Suppository ONE (19:35)
--- NOTE | 2017-09-04 20:19 | CT ---
CTA OF THE NECK WITH CONTRAST CTA OF THE HEAD WITH CONTRAST 09/04/17 COMPARISON: None. HISTORY: Stroke activation. Patient reports with stroke-like symptoms. Patient is having a hard time walking a nd with pain behind the left eye and difficulty speaking and swallowing. TECHNIQUE: 1. Multiple contiguous axial images were obtained in a CTA of the neck with contrast. 3D sagitta l and coronal MIP reformats were performed 2. Multiple contiguous axial images were obtained in a CTA of the head with contrast. Sagittal a nd coronal 3D MIP reformats were performed. FINDINGS: CTA NECK: There are opacities in the left lung which could potentially represent infiltrates or be secondary to aspiration. This is most prominent in the left upper lobe. No cervical adenopathy is seen. Degenerat katie changes are seen in the spine. No mucosal abnormality is seen in the nasopharynx, oropharynx, hyp opharynx, or subglottic regions. The common carotid arteries have a normal origin from the aortic arch without significant atheroscler otic disease. These branch in a normal appearing internal and external carotid arteries which are als o normal in caliber without significant atherosclerotic disease. These have no significant stenosis p er NASCET criteria. The right vertebral artery is normal in appearance. The origin of the left vertebral artery cannot be visualized but a very small left vertebral artery is seen in the mid cervical region. No significant atherosclerotic disease is seen in the visualized portions of the vertebral arteries. CTA HEAD: The bilateral internal carotid arteries are normal in appearance. These branch in a normal appearing anterior and middle cerebral arteries. There is a left posterior communicating artery. There is no ev idence of focal stenosis, aneurysmal dilatation, or occlusion in the anterior circulation. The right vertebral artery is dominant. The posterior cerebral arteries and cerebellar arteries are g rossly intact without large vessel occlusion. There is an evolving infarct in the left cerebellar hem isphere. IMPRESSION: 1. Normal CTA of the neck. 2. Evolving left cerebellar infarction without significant intracranial vascular abnormality. Dr. Lopez notified of the findings at 5:41 p.m. on 09/04/17. POS: [facility]
--- NOTE | 2017-09-04 20:47 | RAD ---
SINGLE VIEW OF THE CHEST: 09/04/17 COMPARISON: 08/25/15 HISTORY: Stroke alert. Patient has previous stroke with altered mental status today. FINDINGS: Single view of the chest shows a normal sized cardiomediastinal silhouette. There is no evidence of c onsolidation, mass, or pleural effusion. The bones are unremarkable. IMPRESSION: No evidence of acute cardiopulmonary disease. POS: [facility]
[2017-09-05] MEDS ORDERED: Dextrose 50% Abboject 50 ML SYRINGE IVP PRN ×2 (00:23→11:58)
[2017-09-05] MEDS ORDERED: Dextrose 5% in Water 1,000 ML IV PRN ×2 (00:23→11:58)
[2017-09-05] MEDS ORDERED: Insulin Regular 300 UNITS/3 ML VIAL SC PRN (00:23)
[2017-09-05] MEDS ORDERED: Piperacillin/Tazobactam 3.375 GM in Sodium Chloride 0.9% 100 ML IVPB SCH (00:30)
[2017-09-05] MEDS: Piperacillin/Tazobactam 3.375 GM in Sodium Chloride 0.9% 100 ML IVPB SCH ×4 (05:58→23:44)
--- NOTE | 2017-09-05 09:20 | HP ---
DATE OF ADMISSION: 09/04/2017 REASON FOR ADMISSION AND CHIEF COMPLAINT: Left-sided weakness and unable to ambulate. HISTORY OF PRESENT ILLNESS: Mr. Holland is a 56-year-old male with past medical history of recent acute cerebellar stroke, hypertension, diabetes mellitus, developed weakness on the left side especially on the left leg. He is unable to ambulate. He started having the left leg started losing the balance. He could not walk anymore. He felt his face was burning and the left side that was al so burning and some headache also on the left side. He also had some difficulty speaking as well and some difficulty swallowing. He was in the hospital about 10 days ago with acute cerebellar stroke, was taking Plavix, so he came to the emergency room where he was evaluated and found to have evolving cerebellar stroke. He is being admitted for further evaluation and management. PAST MEDICAL HISTORY: 1. Diabetes mellitus. 2. Hypertension. 3. Hyperlipidemia. 4. Status post acute cerebrovascular accident, cerebellar left. 5. Morbid obesity. 6. Noncompliance with diet. PAST SURGICAL HISTORY: 1. Status post right knee surgery. 2. Coronary artery disease, status post stent. CURRENT MEDICATIONS: The patient is on metformin 500 mg 2 tablets b.i.d., glipizide 10 mg 2 tablets b.i.d., Lipitor 80 mg daily, lisinopril 10 mg daily, hydrochlorothiazide 12.5 daily, omeprazole 40 mg daily, Actos 15 mg 2 tablets daily, atenolol 25 mg b.i.d., gemfibrozil 600 b.i.d., spironolactone 25 mg daily, Plavix 75 mg daily, not taking aspirin. ALLERGIES: No known drug allergies. FAMILY HISTORY: Positive for diabetes. Dad has diabetes. Mom has heart problems and has coronary a rtery disease. SOCIAL HISTORY: The patient lives with family. He still continues to smoke one pack a day. REVIEW OF SYSTEMS: Cardiovascular: No chest pain. No shortness of breath. Respiratory: No fever or cough. Gastrointestinal: No nausea, vomiting. No abdominal pain. Genitourinary: No dysuria or hematuria. Central nervous system: Has left leg weakness and balance problems. PHYSICAL EXAMINATION: GENERAL: The patient is alert, awake, oriented x3. VITAL SIGNS: Temperature 98, pulse 65, respiration 20, blood pressure 109/70. HEENT: Head is normocephalic, atraumatic. Pupils are equal and reactive to light. Nasopharynx is p isatu and dry. Hard and soft palate, no lesions seen. SKIN: Skin turgor decreased. NECK: Supple. No JVD. LUNGS: Bilateral air entry present, no rales, no rhonchi. HEART: S1, S2 regular. ABDOMEN: Soft, no tenderness, no distention. Normal bowel sounds. RECTAL: Deferred. CENTRAL NERVOUS SYSTEM: The patient is alert, awake, oriented x3. Motor system, power 5/5 in right upper and lower extremities and 4/5 left lower extremity and 3-4/5 in left upper extremity. Deep ten don reflexes 2+ bilaterally. Plantars downgoing. Speech is slightly slurred. No facial droop. Sen toya intact. LABORATORY AND X-RAY FINDINGS: CBC shows WBC 6.6, hemoglobin 13, hematocrit 37, platelets 174,000, p rothrombin time 14.8, INR 1.1. Metabolic panel: Sodium 135, potassium 4.5, chloride 106, CO2 of 28 , urea nitrogen 30, creatinine 1.6, glucose 145. EKG shows normal sinus rhythm, no acute ST-T wave c hanges seen. Chest x-ray negative. CT scan of brain showed evolving left cerebellar infarction. ASSESSMENT: 1. Possible cerebrovascular accident with evolving left cerebellar infarction. 2. Hypertension. 3. Diabetes mellitus, uncontrolled. 4. Hyperlipidemia. 5. Coronary artery disease. PLAN: 1. Vital signs q.4 hours. 2. Activity: As tolerated. 3. Allergies: No known drug allergies. 4. Hep-lock. 5. Continue home medications. 6. Accu-Chek a.c. and at bedtime. 7. Sliding scale mild with regular insulin. 8. Neurology consult. 9. Plavix 75 mg daily. 10. We will obtain APOLINAR.
[2017-09-05] MEDS: Clopidogrel Bisulfate 75 MG TAB PO SCH (10:33)
[2017-09-05] MEDS ORDERED: glipiZIDE 10 MG TAB PO SCH (11:30)
[2017-09-05] MEDS ORDERED: Hydrochlorothiazide 25 MG TAB PO SCH (11:30)
[2017-09-05] MEDS ORDERED: metFORMIN 500 MG TAB PO SCH (11:30)
[2017-09-05] MEDS ORDERED: Spironolactone 25 MG TAB PO SCH (11:30)
[2017-09-05] MEDS ORDERED: Gemfibrozil 600 MG TAB PO SCH (11:30)
[2017-09-05] MEDS ORDERED: Lisinopril 10 MG TAB PO SCH (11:30)
[2017-09-05] MEDS ORDERED: Pioglitazone HCl 15 MG TAB PO SCH (11:30)
[2017-09-05] MEDS ORDERED: Atenolol 25 MG TAB PO SCH (11:30)
--- NOTE | 2017-09-05 13:23 | CON ---
DATE OF CONSULTATION: 09/05/2017 REFERRING PROVIDER: Dr. Shashi Barnes. REASON FOR CONSULTATION: Dysphagia and left-sided weakness. HISTORY OF PRESENT ILLNESS: Mr. Holland is a pleasant 56-year-old male who has been consulted for evaluation of left-sided weakness and dysphagia. This patient, I have seen on his previous admission on 08/25 and at that time, he had a stroke 2 weeks ago, which had resulted in incoordination and ataxia on the left side. He was noted to have left cerebellar stroke extending into the posterior marlen. He had mentioned of having left-sided weakness at that time, which he stated that it got better post-discharge. 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 He also noticed the difficulty with his speech and swallowing, which prompted him to present to the [facility]. He reports that he continues to have the numbness on his right side of the body from his previous stroke. He has noted increasing weakness in his left side as well as dysphagia, which is new. noticed that his face was droopy yesterday. He did not have any headache, chest pain, palpitation, difficulty with breathing, lightheadedness or dizziness. PAST MEDICAL HISTORY: Significant for hypertension, diabetes, hyperlipidemia, history of stroke about 3-4 weeks ago, morbid obesity, and noncompliance with medications and diet. PAST SURGICAL HISTORY: Significant for right knee surgery, coronary artery disease, status post stent placement. FAMILY HISTORY: Significant for diabetes and coronary artery disease. SOCIAL HISTORY: He continues to smoke 1 pack a day. He denies alcohol use or illicit drug use. He is . CURRENT MEDICATIONS: Please review MAR. ALLERGIES: No known drug allergies. REVIEW OF SYSTEMS: As mentioned, which was negative. PHYSICAL EXAMINATION: VITAL SIGNS: Blood pressure of 142/86, pulse of 87, temperature 98.2, respirations of 20 and O2 sats of 95% on room air. GENERAL: A well-developed, well-nourished male resting in bed in no apparent distress. RESPIRATORY: Clear to auscultation bilaterally. CARDIOVASCULAR: Regular rate and rhythm. NEUROLOGIC: Mental status: The patient is awake, alert and oriented x3. Speech and language: Fluent speech. Cranial nerves: Pupils are 3 mm and reactive. Visual redmond are intact. External muscles are intact. No nystagmus noted. Face is symmetric. Tongue and uvula midline. Motor exam showed normal tone and bulk with a 5/5 strength in both upper and lower extremities. There is no pronator drift noted. Sensory: Sensation is diminished in both upper and lower extremities. Deep tendon reflexes, 1+ reflex in both upper and lower extremities. Babinski: Plantar responses flexion bilaterally. Coordination is mild dysmetria on [id number] on the left side. LABORATORY DATA: Labs are reviewed, which included CBC and CMP, which is significant for hemoglobin of 13.2 and hematocrit of 37.1. Sodium 135, glucose of 227, BUN of 30 and creatinine of 1.39, otherwise unremarkable. IMAGING STUDIES: CT angiogram of the head and neck and CT perfusion scan were reviewed, which showed no acute intracranial or extracranial vascular abnormality. CT head without contrast was reviewed, which showed evolving left cerebellar infarction without any acute intracranial abnormality. IMPRESSION: 1. Dysphagia. 2. Left-sided weakness. 3. Recent left cerebellar and pontine stroke, likely contributing to his symptoms of #1 and #2. 4. Diabetes. 5. Hypertension. PLAN: Mr. Holland is a pleasant 56-year-old male, who presented with the increasing dysphagia and left-sided weakness. On my exam, I do not see any new neurological symptoms that were not present on the previous admission. In my opinion, he has recurrence of his symptoms from his prior stroke, probably secondary to poorly controlled blood pressure and diabetes. I have again explained to him that he needs to have a better control of his blood pressure and diabetes and he needs to be compliant with his diet and exercise. I will obtain MRI brain without contrast to rule out new acute event. If there is a new acute ischemic etiology, then I will recommend obtaining APOLINAR. I have advised him that he needs to undergo speech and physical therapy to improve his balance and swallowing. I have again discussed with him that he needs to quit smoking. CHANDRIKA
[2017-09-05] MEDS: Meclizine HCl 25 MG TAB PO SCH ×2 (14:15→21:58)
[2017-09-05] MEDS: Gemfibrozil 600 MG TAB PO SCH (16:57)
[2017-09-05] MEDS: metFORMIN 500 MG TAB PO SCH (16:57)
[2017-09-05] MEDS: Insulin Regular 300 UNITS/3 ML VIAL SC PRN (16:58)
[2017-09-05] MEDS: Atorvastatin Calcium 40 MG TAB PO SCH (21:53)
[2017-09-05] MEDS: glipiZIDE 10 MG TAB PO SCH (21:53)
[2017-09-05] MEDS: Atenolol 25 MG TAB PO SCH (21:53)
[2017-09-05] MEDS: Insulin NPH/Reg Insulin Hm 300 UNITS/3 ML VIAL SC SCH (21:54)
--- NOTE | 2017-09-05 22:22 | CON ---
DATE OF CONSULTATION: 09/05/2017 GASTROINTESTINAL CONSULT REASON FOR CONSULTATION: Dysphagia. HISTORY OF PRESENT ILLNESS: Mr. Jarad Holland is a 56-year-old gentleman who is here at the hospital. He apparently was at an outside hospital beginning of September with CVA. The details of that admission are not available. In any event, he was ultimately discharged and then re-presented here at this [facility] and was admitted from 08/24/2017 through 08/27/2017 with a left cerebellar infarct. He had so me mild oropharyngeal dysphagia and some speech slurring at that time as well as facial droop. He vazquez d some left-sided weakness as well. He was evaluated, seen by Neurology and ultimately discharged [facility] with plans for physical therapy, smoking cessation and improved hypertension and diabetic control. He re-presented to the hospital yesterday evening with feeling that his symptoms were worsening. Russell tanner was re-imaged and there seemed to be some stroke in evolution. He has been reevaluated by Neurolog y and is on medical management at this point in time. Presently, his dysphagia feels worse in the or opharyngeal area. He has a little bit of coughing with swallowing. He feels that things go down as well, solids worse than liquids. He has been evaluated by Speech Pathology. I think he has minimal risk for aspiration. I did recommend, however, thickened liquids. Patient's mother was concerned th at maybe he had esophageal stricture because she has reflux and he has reflux and she has had strictu res. In talking with him, he has not had any problems with dysphagia or odynophagia prior to this. He has no odynophagia now. He is not coughing. He does not feel short of breath. He does really te ll me that there is some concern that maybe he has some aspiration, although chest x-ray on the 08/24 was negative. He has had no fever or cough. PAST MEDICAL HISTORY: Diabetes, hypertension, hyperlipidemia, CVA with stuttering symptoms since the beginning of this month apparently, morbid obesity. PAST SURGICAL HISTORY: Right knee surgery and coronary artery bypass grafting. HOME MEDICATIONS: Metformin, glipizide, Lipitor, lisinopril, hydrochlorothiazide, omeprazole, Actos, atenolol, gemfibrozil, spironolactone, Plavix. He was on aspirin, but not taking it. ALLERGIES: None known. FAMILY HISTORY: Father has diabetes. Mother has heart disease. SOCIAL HISTORY: Patient lives with family who apparently continues to smoke up to this admission. REVIEW OF SYSTEMS: Mild reflux, no vomiting, no abdominal pain. PRESENT MEDICATIONS: Tenormin, Lipitor, vitamin D, Plavix, , Lopid, Glucotrol, glucagon p.r.n., hydrochlorothiazide, sliding scale insulin, lisinopril, Antivert, Glucophage, Protonix, Actos, Zosyn , and Aldactone. PHYSICAL EXAMINATION: VITAL SIGNS: He has been afebrile since admission, T-max 98.2, pulse 87, blood pressure 142/86, and respirations 18. LUNGS: Clear. HEART: Regular rate and rhythm without murmurs. ABDOMEN: Soft, nontender, without palpable hepatosplenomegaly. NECK: Supple without adenopathy. LABORATORY DATA: White count 6.6, hemoglobin 13.2, platelet count 174. Comprehensive metabolic prof ile notable for BUN and creatinine of 30 and 1.39. Sodium 135, potassium is 4. Liver function tests normal. Rheumatoid factor, KORI negative. He has had an echocardiogram on 08/24/2017. ASSESSMENT: Oropharyngeal dysphagia. This is related to his cerebrovascular accident at this point of time and is involved by Speech Pathology, does not feel he is at high risk for aspiration. They h ave recommended thickening agents. His voice is good. He has no slurred speech and he is voice is d ry and not wet. He also has very minimal cough. At this point in time, I reassured the patient this is not likely a stricture from his reflux and that if his symptoms have progressed, he may need to m odified barium swallow, but at present, it seems that the course prescribed by Neurology, admitting durga madden and speech pathologist is appropriate. It would be reasonable to place him on a PPI for his re flux as he has quite a bit of problems with this at home and may be at risk of aspiration, and this h as been done already. The nurses note he is swallowing his pills fine and need to switch him to IV. If he would have worsening symptoms, need to be reconsidered. At this time, there are no signs of a spiration on clinical exam with no tachypnea, fever, leukocytosis, cough or change in breath sounds. If I can be of any further assistance in patient's care, please do not hesitate to contact me. We wi ll follow from a distance.
[2017-09-06] MEDS: Meclizine HCl 25 MG TAB PO SCH ×3 (05:08→20:43)
[2017-09-06] MEDS: Piperacillin/Tazobactam 3.375 GM in Sodium Chloride 0.9% 100 ML IVPB SCH ×3 (05:08→17:15)
[2017-09-06] MEDS ORDERED: Spironolactone 25 MG TAB PO SCH (08:00)
[2017-09-06] MEDS: Hydrochlorothiazide 25 MG TAB PO SCH (09:04)
[2017-09-06] MEDS: glipiZIDE 10 MG TAB PO SCH ×2 (09:04→20:43)
[2017-09-06] MEDS: Pioglitazone HCl 15 MG TAB PO SCH (09:05)
[2017-09-06] MEDS: Atenolol 25 MG TAB PO SCH ×2 (09:05→20:43)
[2017-09-06] MEDS: metFORMIN 500 MG TAB PO SCH ×2 (09:05→17:15)
[2017-09-06] MEDS: Lisinopril 10 MG TAB PO SCH (09:06)
[2017-09-06] MEDS: Gemfibrozil 600 MG TAB PO SCH ×2 (09:06→17:15)
[2017-09-06] MEDS: Clopidogrel Bisulfate 75 MG TAB PO SCH (09:07)
[2017-09-06] MEDS: Insulin NPH/Reg Insulin Hm 300 UNITS/3 ML VIAL SC SCH ×2 (10:30→21:53)
--- NOTE | 2017-09-06 11:37 | PRG ---
DATE OF SERVICE: 09/06/2017 I am covering for Dr. Barnes. HISTORY: This is a 56-year-old gentleman being seen for chronic kidney disease. The patient denies any nausea, vomiting or headache. PHYSICAL EXAMINATION: GENERAL: Patient is awake, alert. VITAL SIGNS: Afebrile, pulse 60, breathing 16, blood pressure 101/70. OBJECTIVE: See above. Awake, alert, in no acute distress. GENERAL APPEARANCE AND MENTAL STATUS: Fair. HEAD/NECK: Normocephalic. Atraumatic. EYES: EOMI. No deformity. EARS: Clear. No ulcers. NOSE: Intact. No lesions. MOUTH: Clear. No discharge. THROAT: Clear. No exudate. LUNGS: Clear. No crackles. CARDIAC: S1, S2. No rub. ABDOMEN: Benign. BS+. GENITALIA/RECTUM: Trevino absent. BACK/EXTREMITIES: Edema 0+ Ulcer- NEUROLOGICAL: Alert and motor intact. SKIN: Rash- Bruise- LYMPHATICS: Edema- Ulcer- LABORATORY: Hemoglobin 13.2. Blood glucose 158. ASSESSMENT AND RECOMMENDATIONS: 1. Acute kidney injury/chronic kidney disease. Recheck labs. 2. Hypertension, stable. 3. Cerebrovascular accident. I would recommend that the patient continue aspirin that should be dec ided by Neurology. We have called their service. 4. Dysphagia following GI. 5. Medications based on glomerular filtration rate are appropriate. I would recommend discontinuing glipizide for other agents.
[2017-09-06 12:19] LABS: Anion Gap 15 mmol/L (10-20); BUN (Urea Nitrogen) 31 mg/dL (8.4-25.7); Calc. Creatinine Clearance 67 mL/min (70-130); Calcium 10.2 mg/dL (7.8-10.44); Carbon Dioxide 27 mmol/L (22-29); Chloride 100 mmol/L (98-107); Estimated GFR-MDRD 44; Glucose 171 mg/dL (70-105); Potassium 4.4 mmol/L (3.5-5.1); Sodium 138 mmol/L (136-145)
--- NOTE | 2017-09-06 14:43 | MRI ---
BRAIN MRI NONCONTRAST: CLINICAL HISTORY: Left-side weakness, stroke. Dysphasia. FINDINGS: Reference is made to 08/25/17 brain MRI as well as recent head CT exams. There has been evolution of area of cytotoxic edema within the left cerebellar hemisphere. Associate d stippled susceptibility indicates internal region of hemorrhagic transformation. There is surround ing edema which does extend to involve the posterior aspect of the left middle cerebellar peduncle an d approximates the expected region of the left facial caliculus. No new restricted diffusion. No mi dline shift or ventriculomegaly. No additional significant interval change. IMPRESSION: 1. Evolution of left cerebellar hemispheric infarction with internal hemorrhagic susceptibility. Re commend continued follow-up with noncontast Head CT. 2. There is edema which approximates the left facial caliculus as well as involves the left middle c erebellar peduncle. POS: ELIZABETH
--- NOTE | 2017-09-06 15:11 | CON ---
DATE OF CONSULTATION: 09/06/2017 HISTORY OF PRESENT: The patient is an unfortunate 56-year-old gentleman who presents with increasing left-sided weakness. The patient has a history of coronary artery disease. He has previously undergone PTCA and stent placement. The patient is followed by Dr. Bethea. The patient states he has had several cerebrovascular accidents in the last few months. He states he has been compliant with his medications. The patient has continued to smoke. He presented once again with left-sided weakness. The patient denied having any chest discomfort. PAST MEDICAL HISTORY: 1. Coronary artery disease. 2. Diabetes mellitus. 3. Hypertension. 4. Hyperlipidemia. PAST SURGICAL HISTORY: Knee surgeries. SOCIAL HISTORY: He is a former smoker. FAMILY HISTORY: Strong family history of coronary artery disease. MEDICATIONS ON ADMISSION: Metformin 500 b.i.d., glipizide 10 b.i.d., Lipitor 80 at bedtime, Actos 15 mg 2 tablets daily, atenolol 25 b.i.d., gemfibrozil 600 b.i.d., HCTZ 12.5 daily, lisinopril 10 daily, spironolactone 25 daily and Plavix 75 daily. REVIEW OF SYSTEMS: A 10-point system unremarkable. No history of easy bruising or bleeding, bright red blood per rectum. PHYSICAL EXAMINATION: GENERAL/VITAL SIGNS: This is a well-developed gentleman in no acute distress with a blood pressure of 117/75. Heart rate was 73 and regular. NECK: No jugular venous distention. LUNGS: Have diminished breath sounds bilateral. HEART: Regular rate and rhythm. Normal S1 and S2. No murmurs. ABDOMEN: Nondistended. EXTREMITIES: Showed trace edema. NEUROLOGIC: Left-sided weakness. VASCULAR: Radial pulses are 2+. SKIN: Warm and dry. LABORATORY RESULTS: Sodium 138, potassium 4.4, chloride 100, bicarbonate 27, BUN 31, creatinine is 1.63 and glucose is 171. His white blood cell count was 6.6 and hemoglobin 13.2, hematocrit 37.1 and platelet count 174. IMAGING DATA: EKG revealed normal sinus rhythm, nonspecific interventricular conduction delay. IMPRESSION: 1. Cerebrovascular accident. 2. History of coronary artery disease, status post percutaneous transluminal coronary angioplasty and stent placement. 3. Hypertension. 4. Diabetes mellitus. 5. Dyslipidemia. 6. Tobacco abuse. PLAN: This gentleman presents with recurrent cerebrovascular accidents. We will proceed with a transesophageal echocardiogram as requested per Neurology. With the patient's increased creatinine, we would discontinue the patient's spironolactone. We will follow this patient with you through his hospitalization. CHANDRIKA
--- NOTE | 2017-09-06 15:50 | PRG ---
DATE OF SERVICE: 09/06/2017 SUBJECTIVE: Mr. Holland is a pleasant 56-year-old male with a history of hypertension, diab etes, hyperlipidemia, smoker, and recent cerebellar infarct presented with worsening incoordination, dysarthria and dysphagia. However, he had MRI brain done today which showed evaluation of the left c erebellar hemispheric infarction. His symptoms seem to be little bit better today than it has been o n yesterday and continues to feel slurred speech and difficulty with swallowing. PHYSICAL EXAMINATION: VITAL SIGNS: Blood pressure of 117/75, pulse of 73, temperature of 97.6, respirations of 18, O2 sats 96% on room air. GENERAL: Well-developed, well-nourished male in no apparent distress. RESPIRATORY: Clear to auscultation bilaterally. CARDIOVASCULAR: Regular rate and rhythm. NEUROLOGICAL: Exam is essentially unchanged when compared to yesterday. IMAGING STUDIES: MRI brain without contrast was reviewed, which showed evolution of the left cerebel lar infarct with mild edema around the facial colliculus and possibly hemorrhagic transformation of t he previous stroke. IMPRESSION: 1. Left cerebellar infarct. 2. Dysphagia, due to #1. 3. Dysarthria, due to #1. DISCUSSION AND PLAN: Mr. Holland is a pleasant 56-year-old male who presented with worsenin g left-sided incoordination along with the dysarthria and dysphagia. His MRI does not show any new i schemic event. It does show prior left cerebellar stroke with mild edema around the left facial georgette iculus. At this time, I would recommend continuing current medical management. He needs to continue on Plavix 75 mg daily for secondary stroke prevention. I have again advised him that he needs to co ntrol his diet and exercise. He needs to control his blood pressure, diabetes, and cholesterol and n eeds to stop smoking. I will hold the Plavix for 2 days to have hemorrhagic transformation resolved. Continue supportive care. No further neurological workup needed from my standpoint. Thank you for consultation.
[2017-09-06] MEDS: Atorvastatin Calcium 40 MG TAB PO SCH (20:42)
[2017-09-07] MEDS: Piperacillin/Tazobactam 3.375 GM in Sodium Chloride 0.9% 100 ML IVPB SCH ×5 (00:31→23:44)
[2017-09-07] MEDS: Meclizine HCl 25 MG TAB PO SCH ×3 (05:42→21:54)
[2017-09-07] MEDS: metFORMIN 500 MG TAB PO SCH ×2 (09:02→18:38)
[2017-09-07] MEDS: Gemfibrozil 600 MG TAB PO SCH ×2 (09:03→15:50)
[2017-09-07] MEDS: Pioglitazone HCl 15 MG TAB PO SCH (09:03)
[2017-09-07] MEDS: Hydrochlorothiazide 25 MG TAB PO SCH (09:03)
[2017-09-07] MEDS: Atenolol 25 MG TAB PO SCH ×2 (09:03→21:54)
[2017-09-07] MEDS: Clopidogrel Bisulfate 75 MG TAB PO SCH ×2 (09:04→18:39)
[2017-09-07] MEDS: Lisinopril 10 MG TAB PO SCH (09:04)
[2017-09-07] MEDS: glipiZIDE 10 MG TAB PO SCH (09:04)
[2017-09-07] MEDS: Insulin NPH/Reg Insulin Hm 300 UNITS/3 ML VIAL SC SCH ×2 (09:06→21:55)
--- NOTE | 2017-09-07 11:36 | PRG ---
DATE OF SERVICE: 09/07/2017 SUBJECTIVE: A 56-year-old gentleman who had mild rise in creatinine. His creatinine increased today . The patient denies no headache, numbness, tingling or weakness. Denies any nausea, vomiting, or c hest pain. OBJECTIVE: GENERAL: Patient is awake, alert. VITAL SIGNS: Afebrile, pulse 60, breathing 16, blood pressure 113/54. OBJECTIVE: See above. Awake, alert, in no acute distress. GENERAL APPEARANCE AND MENTAL STATUS: Fair. HEAD/NECK: Normocephalic. Atraumatic. EYES: EOMI. No deformity. EARS: Clear. No ulcers. NOSE: Intact. No lesions. MOUTH: Clear. No discharge. THROAT: Clear. No exudate. LUNGS: Clear. No crackles. CARDIAC: S1, S2. No rub. ABDOMEN: Benign. BS+. GENITALIA/RECTUM: Trevino absent. BACK/EXTREMITIES: Edema 0+ Ulcer- NEUROLOGICAL: Alert and motor intact. SKIN: Rash- Bruise- LYMPHATICS: Edema- Ulcer- LABORATORY: Hemoglobin 13.2, creatinine was 1.6, today's creatinine is pending. ASSESSMENT AND RECOMMENDATIONS: 1. Acute kidney injury with chronic kidney disease, most likely because of decreased effective arter ial blood volume. Stop hydrochlorothiazide. Order renal imaging and urine studies, 2. Anemia, stable. 3. Medication based on glomerular filtration rate, stop glipizide, insulin can be titrated. 4. Stop metformin if the creatinine goes closer to 2. 5. Medication based on GFR also lisinopril has to be decreased if the creatinine does not improve, a lso Actos at the correct dose.
[2017-09-07 12:32] LABS: Anion Gap 14 mmol/L (10-20); BUN (Urea Nitrogen) 26 mg/dL (8.4-25.7); Calc. Creatinine Clearance 67 mL/min (70-130); Calcium 10.7 mg/dL (7.8-10.44); Carbon Dioxide 31 mmol/L (22-29); Chloride 100 mmol/L (98-107); Estimated GFR-MDRD 44; Glucose 161 mg/dL (70-105); Potassium 4.5 mmol/L (3.5-5.1); Sodium 140 mmol/L (136-145)
--- NOTE | 2017-09-07 12:49 | ULT ---
ULTRASOUND RETROPERITONEUM COMPLETE: (RENAL) DATE: 09/07/17. HISTORY: A 56-year-old male with acute kidney injury (KIMBERLEE). FINDINGS: Right kidney measures 8.5 x 5.5 x 5.5 cm. Left kidney measures 9.4 x 5.5 x 5.5 cm. No hydronephrosis bilaterally. Renal parenchymal echogenicity and parenchymal thickness are within normal limits. No moderate-sized or large cystic or solid renal lesion identified. The urinary bladder volume is 35 mL at the time of this scan. There is apparently diffuse bladder mural thickening, approximately 0.6 cm (6 mm). IMPRESSION: 1. No hydronephrosis. 2. Diffuse mural thickening of the urinary bladder, nonspecific. RD Santana POS: ELIZABETH
[2017-09-07 13:33] LABS: Creatinine, Urine 79.97 mg/dL (63-166); Protein, Urine Random Quant Less than 10 mg/dL
[2017-09-07] MEDS: Sodium Chloride 0.9% 1,000 ML IV SCH (15:44)
[2017-09-07] MEDS: Insulin Regular 300 UNITS/3 ML VIAL SC PRN (17:43)
[2017-09-07] MEDS: Atorvastatin Calcium 20 MG TAB PO SCH (21:54)
[2017-09-08] MEDS: Piperacillin/Tazobactam 3.375 GM in Sodium Chloride 0.9% 100 ML IVPB SCH ×4 (05:19→22:05)
[2017-09-08] MEDS: Atenolol 25 MG TAB PO SCH ×2 (05:20→22:00)
[2017-09-08 06:20] LABS: Anion Gap 13 mmol/L (10-20); BUN (Urea Nitrogen) 26 mg/dL (8.4-25.7); Calc. Creatinine Clearance 73 mL/min (70-130); Calcium 9.7 mg/dL (7.8-10.44); Carbon Dioxide 26 mmol/L (22-29); Chloride 104 mmol/L (98-107); Estimated GFR-MDRD 49; Glucose 90 mg/dL (70-105); Potassium 4.6 mmol/L (3.5-5.1); Sodium 138 mmol/L (136-145)
[2017-09-08] MEDS: Meclizine HCl 25 MG TAB PO SCH ×4 (08:23→22:01)
[2017-09-08] MEDS: metFORMIN 500 MG TAB PO SCH ×2 (09:43→16:34)
[2017-09-08] MEDS: Gemfibrozil 600 MG TAB PO SCH ×2 (09:43→16:34)
[2017-09-08] MEDS: Insulin NPH/Reg Insulin Hm 300 UNITS/3 ML VIAL SC SCH ×2 (09:45→22:02)
[2017-09-08] MEDS: Lisinopril 5 MG TAB PO SCH (09:46)
[2017-09-08] MEDS: Sodium Chloride 0.9% 1,000 ML IV SCH (13:08)
--- NOTE | 2017-09-08 18:57 | PRG ---
DATE OF SERVICE: 09/08/2017 SUBJECTIVE: Patient was seen and examined at bedside and overnight events noted. Patient denies any shortness of breath or chest pain or palpitation. No history of nausea or vomitin g or diarrhea or fever or chills or cramps. OBJECTIVE: GENERAL: This is a well-built male, in no apparent distress. VITAL SIGNS: Temperature 98.1, pulse 70, respiratory rate 18, blood pressure 190/64. HEENT: Atraumatic, normocephalic. Oral mucosa is moist NECK: Supple. CARDIOVASCULAR: S1 and S2 heard. Rate and rhythm regular. RESPIRATORY: Clear to auscultation. GASTROINTESTINAL: Abdomen is soft. MUSCULOSKELETAL: No tenderness. No edema. DERMATOLOGIC: No skin rash. NEUROLOGIC: Alert and awake and oriented x3. No focal neurologic deficits. Moving all the extremit ies. PSYCHIATRIC: Mood and affect normal. LABORATORY DATA: Potassium 4.6, BUN 76, creatinine is 1.5. ASSESSMENT AND PLAN: 1. Acute kidney injury on chronic kidney disease, stage 3. Renal function with slight improvement, creatinine is 1.5 from 1.6. 2. Anemia. 3. Hypertension, stable. 4. Edema, controlled. 5. Hold nephrotoxins and hydration as tolerated. We will monitor renal function. We will continue to follow.
[2017-09-08] MEDS: Atorvastatin Calcium 20 MG TAB PO SCH (22:00)
[2017-09-09] MEDS: Piperacillin/Tazobactam 3.375 GM in Sodium Chloride 0.9% 100 ML IVPB SCH ×2 (05:22→13:45)
[2017-09-09] MEDS: Atenolol 25 MG TAB PO SCH (05:23)
[2017-09-09] MEDS: Insulin NPH/Reg Insulin Hm 300 UNITS/3 ML VIAL SC SCH (07:01)
[2017-09-09] MEDS: metFORMIN 500 MG TAB PO SCH (07:01)
[2017-09-09] MEDS: Meclizine HCl 25 MG TAB PO SCH ×2 (07:01→13:46)
[2017-09-09] MEDS: Gemfibrozil 600 MG TAB PO SCH (07:01)
[2017-09-09] MEDS: Lisinopril 5 MG TAB PO SCH (07:02)
[2017-09-09 09:33] LABS: Anion Gap 11 mmol/L (10-20); BUN (Urea Nitrogen) 25 mg/dL (8.4-25.7); Calc. Creatinine Clearance 76 mL/min (70-130); Calcium 9.8 mg/dL (7.8-10.44); Carbon Dioxide 27 mmol/L (22-29); Chloride 106 mmol/L (98-107); Estimated GFR-MDRD 53; Glucose 111 mg/dL (70-105); Potassium 4.3 mmol/L (3.5-5.1); Sodium 140 mmol/L (136-145)
[2017-09-09] MEDS ORDERED: PROPOFOL 200 MG/20 ML VIAL ONE (12:01)
[2017-09-09 12:10] VITALS: BP 126/78; TEMP 98.1
[2017-09-09] MEDS ORDERED: PROPOFOL 20 ML ONE (12:11)
--- NOTE | 2017-09-09 13:26 | ECHO ---
TRANSESOPHAGEAL ECHOCARDIOGRAM: DATE OF PROCEDURE: 09/09/17 INDICATION: This is a 56-year-old gentleman with a cerebrovascular accident. DESCRIPTION OF PROCEDURE: The patient was taken to the PACU. The patient was sedated by anesthesiology. A transesophageal probe was placed in the distal esophagus and stomach. Echocardiographic images were obtained. Contrast bubble exam was performed. Th e transesophageal probe was removed. FINDINGS: 1. Normal left ventricular systolic function. 2. Normal mitral and aortic valves. 3. Mild mitral regurgitation. 4. No thrombus is noted in left atrial appendage. 5. No PFO noted by color Doppler exam or contrast bubble exam. IMPRESSION: No formed thrombus in left atrial appendage and no PFO noted.
--- NOTE | 2017-09-09 17:02 | PRG ---
DATE OF SERVICE: 09/09/2017 NEPHROLOGY PROGRESS NOTE SUBJECTIVE: Patient was seen and examined at bedside and overnight events noted. Patient denies any shortness of breath or chest pain or palpitation. No history of nausea or vomiting or diarrhea or f ever or chills or cramps. OBJECTIVE: GENERAL: This is a well-built male in no apparent distress. VITAL SIGNS: Temperature 98.1, pulse 58, respiratory rate 16, blood pressure 126/70. HEENT: Atraumatic, normocephalic. Oral mucosa is moist. NECK: Supple. CARDIOVASCULAR: S1, S2 heard. Rate and rhythm regular. RESPIRATORY: Clear to auscultation. GASTROINTESTINAL: Abdomen is soft. MUSCULOSKELETAL: No tenderness. No edema. DERMATOLOGIC: No skin rash. NEUROLOGIC: Alert and awake and oriented x3. No focal neurologic deficits. Moving all the extremiti es. PSYCHIATRIC: Mood and affect normal. LABORATORY DATA: Potassium is 4.3, BUN is 25, creatinine is 1.4. ASSESSMENT AND PLAN: 1. Acute kidney injury on chronic kidney disease, stage 3. Renal function is better. 2. Anemia. 3. Hypertension. 4. Edema. 5. He is overall, stable. Okay to discharge home. Follow with Dr. Lerner in 1-2 weeks.
[2017-09-10] MEDS ORDERED: Clopidogrel Bisulfate 75 MG TAB PO SCH (09:00)
--- NOTE | 2017-09-10 15:36 | DIS ---
+DATE OF ADMISSION: 09/04/2017 DATE OF DISCHARGE: 09/09/2017 ADMITTING DIAGNOSES: 1. Possible evolving left cerebellar infarction. 2. Hypertension. 3. Diabetes mellitus, uncontrolled. 4. Hyperlipidemia. 5. Coronary artery disease. FINAL DIAGNOSES: 1. Cerebrovascular accident due to evolving left cerebellar infarction. 2. Hypertension. 3. Diabetes mellitus, uncontrolled, improved. 4. Hyperlipidemia. 5. Coronary artery disease. BRIEF SUMMARY OF HOSPITAL COURSE: Mr. Holland is a 56-year-old male with past medical histo ry of diabetes, hypertension, recent stroke with cerebellar infarction, came because of the left-side d weakness involving the left lower leg, especially with loss of balance and dragging of the leg. CA T scan showed evolving left cerebellar infarction. The patient was seen by a neurologist in the hosp ital. He felt the patient has left-sided weakness due to his cerebellar stroke, suggested MRI of the brain without contrast and also APOLINAR to rule out any vegetation in the heart. So, the patient underw ent MRI. MRI showed evolution of left cerebellar hemisphere infarction with internal hemorrhage. Th e patient complained of dysphagia. In view of that, a GI consult was obtained. GI felt the patient has dysphagia secondary to CVA. Otherwise, no evidence of any esophageal obstruction. The patient u nderwent transesophageal echocardiogram in view of his cerebellar stroke and it was reported as carina l LV function with normal mitral and aortic valves, no thrombus noted. The patient has improved and he is able to ambulate. In view of that, the patient is discharged home. At the time of discharge, he was stable. Vital signs were stable. Lungs were clear. Heart sounds regular. Abdomen was soft, nontender. Bowel sounds present. DISCHARGE MEDICATIONS: Include omeprazole 40 mg daily, gemfibrozil 600 b.i.d., vitamin D daily; Lipi tor 80 mg daily; glipizide 20 mg b.i.d., hydrochlorothiazide 12.5 daily, NovoLog insulin 70/30 of 26 units in the morning and 20 units in the evening, Antivert p.r.n., metformin 1000 b.i.d., spironolact one was discontinued, hydrochlorothiazide was also discontinued, lisinopril dose was reduced to 5 mg daily, Plavix 75 mg daily, Actos 30 mg daily, atenolol 25 mg b.i.d. DISCHARGE INSTRUCTIONS: The patient will continue with ADA diet and come for followup in 2 weeks.
--- NOTE | 2017-09-13 22:58 | EKG ---
Test Reason : Blood Pressure : / mmHG Vent. Rate : 073 BPM Atrial Rate : 073 BPM P-R Int : 160 ms QRS Dur : 118 ms QT Int : 400 ms P-R-T Axes : 064 -36 016 degrees QTc Int : 440 ms Normal sinus rhythm Left axis deviation Non-specific intra-ventricular conduction delay Abnormal ECG Confirmed by MIGDALIA HICKMAN, MARIELA ([id number]), script editor ARLET ASCENCIO ([id number]) on 09/13/2017 10:58:04 PM Referred By: Confirmed By:MARIELA NEGRON MD
== END 2017-09-09 15:49 | disposition home health service (06) | DRG 65 ==
LOC: ERS 16:54 → 2SE 19:32
PROVIDERS: ADMIT Internal Medicine; ATTEND Internal Medicine
PROC: B245ZZ4 Ultrasonography of Left Heart, Transesophageal (ICD-10-PCS; principal; 2017-09-09)
DX: I63.9 Cerebral infarction, unspecified (principal); N17.9 Acute kidney failure, unspecified; N18.3 Chronic kidney disease, stage 3 (moderate); G81.94 Hemiplegia, unspecified affecting left nondominant side; R13.12 Dysphagia, oropharyngeal phase; E11.9 Type 2 diabetes mellitus without complications; D64.9 Anemia, unspecified; E66.9 Obesity, unspecified; E78.5 Hyperlipidemia, unspecified; Z86.73 Personal history of transient ischemic attack (TIA), and cerebral infarction without residual deficits; Z68.32 Body mass index [BMI] 32.0-32.9, adult; Z91.19 Patient's noncompliance with other medical treatment and regimen; I25.10 Atherosclerotic heart disease of native coronary artery without angina pectoris; Z95.5 Presence of coronary angioplasty implant and graft; Z79.01 Long term (current) use of anticoagulants; Z79.84 Long term (current) use of oral hypoglycemic drugs; Z79.82 Long term (current) use of aspirin; F17.210 Nicotine dependence, cigarettes, uncomplicated; I12.9 Hypertensive chronic kidney disease with stage 1 through stage 4 chronic kidney disease, or unspecified chronic kidney disease; R47.1 Dysarthria and anarthria; I34.0 Nonrheumatic mitral (valve) insufficiency
CPT/HCPCS: 36415; 36416; 70450; 70496; 70498; 70551; 71045; 76770; 80048; 80053; 82553; 82570; 84156; 84484; 85025; 85610; 85730; 93005; 93312; 99406; G8978-GP-CJ; G8979-GP-CI; G8987-GO-CJ; G8988-GO-CI; G8996-GN-CK; G8996-GN-CL; G8997-GN-CI; G8997-GN-CJ; J1815; J2543; J2704; J7050

== ENCOUNTER 2022-08-16 16:12 | Observation (INO) | payer MEDICARE, SELFPAY ==
[2022-08-16 19:24] VITALS: BMI 39.2
[2022-08-16] MEDS ORDERED: Dextrose 5% in Water 1,000 ML IV PRN (19:37)
[2022-08-16] MEDS ORDERED: Dextrose 50% Abboject 50 ML SYRINGE SLOW IVP PRN (19:37)
[2022-08-16] MEDS ORDERED: Ondansetron ODT 4 MG TAB PO PRN (19:47)
[2022-08-16] MEDS ORDERED: hydrALAZINE 20 MG/ML VIAL SLOW IVP PRN (19:47)
[2022-08-16] MEDS ORDERED: Ondansetron PF 4 MG/2 ML Vial IVP PRN (19:47)
[2022-08-16] MEDS ORDERED: HumaLOG 300 UNITS/3 ML VIAL SC PRN ×2 (19:47)
[2022-08-16] MEDS ORDERED: Acetaminophen 325 MG TAB PO PRN (19:47)
[2022-08-16 20:34] LABS: #Basophils 0.1 thou/uL (0.0-0.2); #Eosinphils 0.2 thou/uL (0.0-0.7); #Neutrophils 4.7 thou/uL (1.40-6.50); %Basophils 0.8 % (0.0-1.0); %Eosinophils 2.6 % (0.0-10.0); %Monocytes 12.9 % (0.0-10.0); %Neutrophils 58.9 % (42.0-75.0); Mean Corpuscular HGB CONC 32.4 g/dL (32.0-36.0); Mean Corpuscular Hemoglobin 35.4 pg (27.0-31.0); Mean Platelet Volume 11.6 fL (7.4-10.4); Platelet Count 168 10x3/uL (130-400); Red Blood Cell (RBC) Count 4.24 mill/uL (4.70-6.10)
[2022-08-16 20:56] LABS: ALT (SGPT) 15 U/L (8-55); AST (SGOT) 20 U/L (5-34); Albumin 4.3 g/dL (3.5-5.0); Alkaline Phosphatase 83 U/L (40-110); Anion Gap 15 mmol/L (10-20); BUN (Urea Nitrogen) 20 mg/dL (8.4-25.7); Bilirubin, Total 0.6 mg/dL (0.2-1.2); Calc. Creatinine Clearance 83 mL/min (70-130); Calcium 9.4 mg/dL (7.8-10.44); Carbon Dioxide 26 mmol/L (22-29); Chloride 103 mmol/L (98-107); Estimated GFR 54; Globulin 3.3 g/dL (2.4-3.5); Glucose 103 mg/dL (70-105); Potassium 4.4 mmol/L (3.5-5.1); Protein, Total 7.6 g/dL (6.0-8.3); Sodium 140 mmol/L (136-145)
[2022-08-16] MEDS ORDERED: Atorvastatin Calcium 40 MG TAB PO SCH (21:00)
[2022-08-17] MEDS: HYDROcodone/Acetaminophen 5/325 mg Tablet PO PRN ×2 (01:45→08:53)
[2022-08-17 06:46] LABS: Cardiac Risk 4.7 (Less than 4.5)
[2022-08-17] MEDS ORDERED: Labetalol HCl 100 MG/20 ML VIAL SLOW IVP PRN (07:34)
[2022-08-17] MEDS ORDERED: hydrALAZINE 20 MG/ML VIAL SLOW IVP PRN (07:36)
[2022-08-17] MEDS ORDERED: metFORMIN 500 MG TAB PO SCH (08:00)
[2022-08-17 08:16] LABS: Glucose 70 mg/dL (70-105)
[2022-08-17] MEDS ORDERED: Losartan 25 MG TAB PO SCH (09:00)
[2022-08-17] MEDS ORDERED: Cholecalciferol 1,000 UNITS (25 MCG) TAB PO SCH (09:00)
[2022-08-17] MEDS ORDERED: Cyanocobalamin (Vitamin B-12) 1,000 MCG TAB PO SCH (09:00)
[2022-08-17] MEDS ORDERED: Folic Acid 1 MG TAB PO SCH (09:00)
[2022-08-17] MEDS ORDERED: Multivit, Therapeutic 1 TAB PO SCH (09:00)
[2022-08-17] MEDS ORDERED: Clopidogrel Bisulfate 75 MG TAB PO SCH (09:00)
[2022-08-17] MEDS ORDERED: Aspirin 325 mg Enteric Coated Tablet PO SCH (09:00)
[2022-08-17] MEDS ORDERED: Aspirin 81 mg Enteric Coated Tablet PO SCH (09:00)
[2022-08-17] MEDS ORDERED: Ipratropium/Albuterol 3 ML NEB NEB PRN (11:10)
[2022-08-17 12:06] VITALS: BP 163/89; TEMP 97.5
[2022-08-17] MEDS ORDERED: Diclofenac 1% 100 GM GEL TP SCH (13:00)
[2022-08-17] MEDS ORDERED: HumuLIN 70/30 (300 UNITS/3 ML VIAL) SC SCH ×2 (21:00)
[2022-08-18] MEDS ORDERED: Lidocaine 4% Patch TD SCH (09:00)
[2022-08-18] MEDS ORDERED: Transdermal Patch Removal TOP SCH (21:00)
== END 2022-08-17 15:02 | disposition home or self-care (01) ==
LOC: NEURO 16:12
PROVIDERS: ADMIT Internal Medicine; ATTEND Family Medicine
DX: M19.012 Primary osteoarthritis, left shoulder (principal); S46.212A Strain of muscle, fascia and tendon of other parts of biceps, left arm, initial encounter; S46.312A Strain of muscle, fascia and tendon of triceps, left arm, initial encounter; I25.10 Atherosclerotic heart disease of native coronary artery without angina pectoris; I12.9 Hypertensive chronic kidney disease with stage 1 through stage 4 chronic kidney disease, or unspecified chronic kidney disease; Z20.822 Contact with and (suspected) exposure to COVID-19; E11.22 Type 2 diabetes mellitus with diabetic chronic kidney disease; N18.9 Chronic kidney disease, unspecified; I69.954 Hemiplegia and hemiparesis following unspecified cerebrovascular disease affecting left non-dominant side; E78.5 Hyperlipidemia, unspecified; D75.89 Other specified diseases of blood and blood-forming organs; M48.02 Spinal stenosis, cervical region; F17.210 Nicotine dependence, cigarettes, uncomplicated; Z95.5 Presence of coronary angioplasty implant and graft; X50.9XXA Other and unspecified overexertion or strenuous movements or postures, initial encounter; Y93.89 Activity, other specified
CPT/HCPCS: 70551; 73030; 73060; 80053; 80061; 82947; 82962 ×2; 85025; G0378 ×2; U0003; U0005; 36415; 36416; J1815

== ENCOUNTER 2022-09-02 12:22 | Outpatient (CLI) | payer MEDICARE | END 2022-09-02 12:23 | disposition home or self-care (01) | LOC: TBSIIMAG 12:22 | PROVIDERS: ATTEND Orthopaedic Surgery | DX: S46.312A Strain of muscle, fascia and tendon of triceps, left arm, initial encounter (principal); S56.212A Strain of other flexor muscle, fascia and tendon at forearm level, left arm, initial encounter; S56.812A Strain of other muscles, fascia and tendons at forearm level, left arm, initial encounter ==